=== PATIENT | female | born 1935 | race Caucasian/White ===

== ENCOUNTER 2019-08-31 09:49 | Inpatient (IN) ==
[2019-08-31] MEDS ORDERED: SALINE LOCK IV FLUID XX ONE (11:13)
[2019-08-31] MEDS ORDERED: DUONEB (A & A) INH SCH (11:15)
[2019-08-31] MEDS ORDERED: TYLENOL PO PRN (11:15)
[2019-08-31 11:51] LABS: BASO# 0.02 X1000 (0.0-0.2); BASO% 0.2 % (0.0-0.8); HEMATOCRIT 42.4 % (37.0-47.0); IMM GRAN# 0.02 X1000 (0.0-0.04); IMM GRAN% 0.2 % (0.0-0.5); LYMPH# 2.28 X1000 (1.2-3.4); LYMPH% 22.7 % (20.5-51.1); MCH 28.8 PG (27-31); MCV 87.2 FL (81-99); MONO# 1.25 X1000 (0.11-0.59); MONO% 12.4 % (1.7-9.3); MPV 9.4 FL (7.4-10.4); NEUT# 6.48 X1000 (1.4-6.5); NEUT% 64.5 % (42.2-75.2); PLT 235 X1000 (130-400); RBC 4.86 XMIL (4.2-5.4); RDW 14.2 % (11.5-14.5); WBC 10.05 X1000 (4.8-10.8)
[2019-08-31 12:06] LABS: AGAP 9; ALB/GLOB RATIO 1.1; ALKALINE PHOSPHATASE 56 U/L (32-104); BUN 9 mg/dL (8-22); CALCIUM 8.9 mg/dL (8.8-10.2); CHLORIDE 92 mmol/L (98-107); COSMO 261; CREATININE 0.7 mg/dL (0.5-0.9); ESTIMATED GFR > 60; GLUCOSE 97 mg/dL (70-104); GOT 23 U/L (10-30); GPT 11 U/L (10-36); SODIUM 131 mmol/L (136-145); TCO2 30 mmol/L (25-35); TOTAL BILIRUBIN 0.52 mg/dL (0.20-1.00); TOTAL PROTEIN 7.7 g/dL (6.3-8.3)
[2019-08-31] MEDS: SOLU-MEDROL IV SCH ×2 (12:39→18:27)
[2019-08-31] MEDS: ROCEPHIN 1 GM in NS 50 ML IV SCH (13:16)
[2019-08-31] MEDS: LEVAQUIN 750 MG/D5W 750 MG/150 ML IVPB IV SCH (13:17)
[2019-08-31 13:22] LABS: BE 5.4 mmoll (-3.0-3.0); BLOOD TYPE ARTERIAL; PCO2(98.6) 42 mmHg (35-45); PO2(98.6) 66 mmHg (60-100); SAMPLE BLOOD; THB 14.7 g/dL (11.5-17.4)
[2019-08-31 13:23] LABS: ALLEN TEST YES; METHB 1.3 % (0.0-1.5); MODALITY ROOM AIR; O2(CT) 19.2 mL/dL (15.0-23.0); O2HB 93.1 % (95.0-99.0); pH(98.6) 7.46 (7.35-7.45)
[2019-08-31 13:25] LABS: URINE SOURCE CLEAN CATCH
[2019-08-31 13:33] LABS: BILIRUBIN URINE NEGATIVE (NEGATIVE); BLOOD URINE TRACE (NEGATIVE); COLOR YELLOW; GLUCOSE URINE NEGATIVE (NEGATIVE); KETONE URINE NEGATIVE (NEGATIVE); LEUKOCYTES URINE NEGATIVE (NEGATIVE); NITRITE URINE NEGATIVE (NEGATIVE); PROTEIN URINE TRACE mg/dL (NEGATIVE); SP GRAVITY URINE 1.012; TURBIDITY URINE CLEAR (CLEAR); UROBILINOGEN URINE NORMAL (NORMAL)
[2019-08-31 13:34] LABS: UR EPITHELIAL CELLS <10 /HPF (<10); URINE BACTERIA NEGATIVE /HPF; URINE RBC <10 /HPF (<10); URINE WBC <10 /HPF (<10)
[2019-08-31] MEDS: DUONEB (A & A) INH SCH ×3 (16:19→23:39)
[2019-09-01] MEDS: ROCEPHIN 1 GM in NS 50 ML IV SCH ×3 (00:01→23:30)
[2019-09-01] MEDS: SOLU-MEDROL IV SCH ×5 (00:09→23:30)
[2019-09-01] MEDS ORDERED: SYSTANE EYE DROPS BOTH EYES PRN (06:19)
[2019-09-01 07:55] LABS: BASO# 0.01 X1000 (0.0-0.2); BASO% 0.1 % (0.0-0.8); HEMATOCRIT 43.9 % (37.0-47.0); HEMOGLOBIN 14.9 g/dL (12.0-16.0); LYMPH% 23.1 % (20.5-51.1); MCH 28.9 PG (27-31); MCHC 33.9 g/dL (33-37); MCV 85.2 FL (81-99); MONO# 0.19 X1000 (0.11-0.59); MONO% 2.3 % (1.7-9.3); MPV 10.4 FL (7.4-10.4); NEUT# 6.13 X1000 (1.4-6.5); NEUT% 74.5 % (42.2-75.2); PLT 239 X1000 (130-400); RBC 5.15 XMIL (4.2-5.4); WBC 8.23 X1000 (4.8-10.8)
--- NOTE | 2019-09-01 08:12 | Diag Imaging Result Doc PS360 ---
EXAM: CHEST-1 VIEW INDICATION: Pneumonia TECHNIQUE: One view COMPARISON: 07/11/2019 FINDINGS: The right upper lobe infiltrate seen on the previous study has worsened. The patient is slightly rotated toward the right, which may accentuated it. Right hilar prominence is stable. No discrete pleural fluid collection or pneumothorax is identified. The cardiac silhouette is unremarkable. IMPRESSION: Increase in density of the right upper lobe infiltrate as described. Electronically signed by Francis Roger 09/01/2019 8:10 AM
[2019-09-01] MEDS: DUONEB (A & A) INH SCH ×5 (08:20→23:52)
[2019-09-01 08:33] LABS: AGAP 14; BUN 9 mg/dL (8-22); CALCIUM 9.5 mg/dL (8.8-10.2); CHLORIDE 92 mmol/L (98-107); COSMO 268; CREATININE 0.5 mg/dL (0.5-0.9); ESTIMATED GFR > 60; GLUCOSE 159 mg/dL (70-104); POTASSIUM 3.3 mmol/L (3.5-5.1); SODIUM 133 mmol/L (136-145); TCO2 27 mmol/L (25-35)
--- NOTE | 2019-09-01 09:50 | PROVIDER PROGRESS NOTE ---
Progress Note Pulmonary additional note: Full consult to follow. If in bronchospasm becomes a recurrent issue, consider discontinuing nadolol.
--- NOTE | 2019-09-01 10:15 | PROGRESS NOTE ---
DATE: 09/01/2019 SUBJECTIVE: The patient says she feels a little bit better. She came in with bronchospasm and mild hypoxia. OBJECTIVE: Vital signs: Blood pressure is 159/83, respirations 20, pulse 61, temperature 97.9 degrees Fahrenheit HEENT: She is normocephalic. Lungs: Have scattered rales but no wheezing now. Heart: Regular rate and rhythm without murmurs, gallops, friction rubs. Abdomen: Soft. Active bowel sounds. No organomegaly or tenderness. Neurological: Intact grossly except for dementia. LABORATORY DATA: [place] [address] [place] 8230, hemoglobin 14.9. Initial blood gas had a pH 7.46, pCO2 242, PO2 a little low at 66 on room air. She is now on some oxygen. Initial potassium was 3, this morning was 3.3. Sodium was a little low also at 131 initially, and now 133. We will give her some p.o. potassium and we will watch this. ASSESSMENT: 1. Hypoxic respiratory distress. 2. Bronchospasm. 3. Right upper lobe pneumonia. 4. Hypokalemia secondary. 5. Secondary diagnosis of hypertension and dementia. PLAN: We will continue treatment. Replace potassium. We will change her from a clear liquid diet to a regular diet now. Continue IV antibiotics, IV steroids and breathing treatments. cc: River Tejeda Jr, MD
[2019-09-01] MEDS: ARICEPT PO SCH (10:53)
[2019-09-01] MEDS: LEXAPRO PO SCH (10:53)
[2019-09-01] MEDS: PRILOSEC PO SCH ×2 (10:53→21:47)
[2019-09-01] MEDS: NAMENDA PO SCH ×2 (10:54→21:47)
[2019-09-01] MEDS: AYR NASAL SPRAY NAS SCH (10:54)
[2019-09-01] MEDS: FLONASE NAS SCH (10:54)
[2019-09-01] MEDS: CORGARD PO SCH ×2 (10:54→21:47)
[2019-09-01] MEDS: KLOR-CON PO SCH (10:55)
[2019-09-01] MEDS: LEVAQUIN 750 MG/D5W 750 MG/150 ML IVPB IV SCH (12:34)
[2019-09-01] MEDS: MIRALAX PO SCH (18:55)
[2019-09-01] MEDS: CRESTOR PO SCH (21:48)
--- NOTE | 2019-09-01 21:52 | CONSULTATION ---
DATE OF CONSULTATION: 09/01/2019 CHIEF COMPLAINT: Shortness of breath. HISTORY OF PRESENT ILLNESS: This is an 84-year-old female who came in with bronchospasm and mild hypoxia. Recent chest x-ray revealed increased density of the right upper lobe infiltrate since last study. ALLERGIES: Codeine, penicillin, cefprozil. REVIEW OF SYSTEMS: A 10-point review of systems was obtained and pertinent is listed within the HPI, otherwise noncontributory. PAST MEDICAL HISTORY: Hypertension, dementia, hyperlipidemia. PAST SURGICAL HISTORY: Noncontributory. PHYSICAL EXAMINATION: Vital Signs: Temperature 98.8, pulse 104, respirations 20, blood pressure 187/105, O2 saturation 100% on room air. General: This is an 84-year-old female with daughter at bedside in no acute distress at present time. HEENT: Head is atraumatic, normocephalic. Pupils equal. Neck: Supple. Trachea midline. Respiratory: Wheezing noted bilaterally throughout lung luther. Nonlabored breathing. Symmetrical excursion. Cardiovascular: Regular rate and rhythm without murmurs, gallops or friction rubs. Abdomen: Soft, active bowel sounds in all 4 quadrants. Neurologic: Intact except for dementia. DIAGNOSTIC STUDIES: Mentioned in HPI. LABORATORY DATA: White blood cells 8.23. Red blood cells 5.15. Hemoglobin 14.9. Hematocrit 43.9. Sodium 133. Potassium 3.3. Chloride 92. Carbon dioxide 27. BUN 9. Calcium 9.5. ASSESSMENT AND PLAN: 1. Pneumonia, right upper lobe. Continue antibiotics, bronchodilators and steroids as prescribed. 2. Hypoxic respiratory distress. Continue supplemental O2 as needed. 3. Bronchospasm. If this becomes a recurrent issue, we will consider discontinuing nadolol. 4. Hypertension. We will monitor. 5. Dementia, aware. She is on Aricept and Namenda. TIME: Spent 31 minutes with this patient. Thank you for the courtesy of this consult. Dictated by CHIN Bruce for Lucero Apple MD cc: CHIN Bruce MD Roger H. Moss Jr, MD
[2019-09-02] MEDS: DUONEB (A & A) INH SCH ×7 (03:52→23:33)
[2019-09-02] MEDS: SOLU-MEDROL IV SCH ×3 (06:27→18:48)
[2019-09-02 06:38] LABS: BASO# 0.02 X1000 (0.0-0.2); BASO% 0.1 % (0.0-0.8); EOS# 0.01 X1000 (0.0-0.7); EOS% 0.1 % (0.0-10.0); HEMATOCRIT 43.8 % (37.0-47.0); HEMOGLOBIN 14.8 g/dL (12.0-16.0); IMM GRAN# 0.05 X1000 (0.0-0.04); IMM GRAN% 0.3 % (0.0-0.5); LYMPH# 2.01 X1000 (1.2-3.4); LYMPH% 12.8 % (20.5-51.1); MCH 28.9 PG (27-31); MCHC 33.8 g/dL (33-37); MCV 85.5 FL (81-99); MONO# 0.62 X1000 (0.11-0.59); MONO% 3.9 % (1.7-9.3); MPV 9.5 FL (7.4-10.4); NEUT# 13.02 X1000 (1.4-6.5); NEUT% 82.8 % (42.2-75.2); PLT 250 X1000 (130-400); RBC 5.12 XMIL (4.2-5.4); RDW 14.2 % (11.5-14.5); WBC 15.73 X1000 (4.8-10.8)
[2019-09-02 06:52] LABS: AGAP 11; BUN 12 mg/dL (8-22); CALCIUM 9.1 mg/dL (8.8-10.2); CHLORIDE 99 mmol/L (98-107); COSMO 277; CREATININE 0.6 mg/dL (0.5-0.9); ESTIMATED GFR > 60; GLUCOSE 164 mg/dL (70-104); POTASSIUM 3.3 mmol/L (3.5-5.1); SODIUM 137 mmol/L (136-145); TCO2 27 mmol/L (25-35)
--- NOTE | 2019-09-02 10:07 | PROGRESS NOTE ---
DATE: 09/02/2019 SUBJECTIVE: The patient says she is feeling better. She is not wheezing. OBJECTIVE: Blood pressure is 173/77, respirations 18, pulse 62, temperature 97.7 degrees Fahrenheit. HEENT: She is normocephalic. EOMs intact. PERRLA. Throat clear. Lungs: Have a few scattered rales but no wheezes at this time. Heart: Regular rate and rhythm without murmurs, gallops, or friction rubs. Abdomen: Soft. Active bowel sounds. No organomegaly or tenderness. Neurological: Examination intact grossly. Her sputum culture grew out E. coli that was not sensitive to Levaquin but is sensitive to cephalosporins. She is clinically getting better. Her white count went up to 15,000, which may be from her steroids. It shows, on her chart at the office, that she is allergic to penicillin but not cephalosporins. However, in the hospital chart, it showed that she is allergic to penicillin, codeine, and Cefzil. However, we found that when she took the Cefzil, she did not have an allergic reaction. She just threw it up almost immediately and could not take it. I think we can continue with the Rocephin and stop the Levaquin. She has taken Bactrim in the past and bacterium is sensitive to that and we may discharge her home on Bactrim. Right now, she seems to be doing well with the Rocephin. We will stop the Levaquin. She is on a beta-gato which can make wheezing worse, but she seems to be under control with this and when I first saw her in the office, she was not wheezing and that is I continued the nadolol. We will continue it at this time but if her wheezing comes back, we might consider changing it to a calcium channel gato. Blood pressure is more elevated but that may be because she has had pneumonia and because of the steroids. Since she is having no wheezing now, I am going to decrease her steroids a little and stop the Levaquin. We will get a chest x-ray tomorrow. ASSESSMENT: 1. Right upper lobe pneumonia. 2. Bronchospasm. 3. Hypertension. PLAN: We will get a chest x-ray, stop Levaquin, continue Rocephin. cc: River Tejeda Jr, MD
[2019-09-02] MEDS ORDERED: VANCOMYCIN IV PER PHARMACY MISC SCH (10:15)
[2019-09-02] MEDS: NAMENDA PO SCH ×2 (10:58→22:21)
[2019-09-02] MEDS: ARICEPT PO SCH (10:59)
[2019-09-02] MEDS: CORGARD PO SCH ×2 (10:59→22:21)
[2019-09-02] MEDS: PRILOSEC PO SCH ×2 (10:59→22:21)
[2019-09-02] MEDS: KLOR-CON PO SCH (11:00)
[2019-09-02] MEDS: FLONASE NAS SCH (11:00)
[2019-09-02] MEDS: LEXAPRO PO SCH (11:00)
[2019-09-02] MEDS ORDERED: VANCOMYCIN 1,500 MG in NS 250 ML IV ONE (11:00)
[2019-09-02] MEDS: AYR NASAL SPRAY NAS SCH (11:00)
--- NOTE | 2019-09-02 15:10 | Diag Imaging Result Doc PS360 ---
EXAM: CT THORAX W/O CONTRAST INDICATION: SOB TECHNIQUE: This exam was performed using automated exposure control, adjustment of mA or kV according to patient size, and/or use of iterative reconstruction technique. COMPARISON: 08/28/2018 FINDINGS: There is extensive patchy airspace consolidation involving the right upper lobe with bronchial mucosal thickening as well as tree-in-bud opacities indicating bronchitis and bronchiolitis. There is also mild bronchiectasis in the right upper lobe and there is atelectasis at the anterior segment of the right upper lobe. There is much milder patchy slightly nodular infiltrate at the superior aspect of the right lower lobe as well as a couple of mild nodular groundglass opacities in the left lower lobe. This was seen on the previous study 12 maxillary degree in the right upper lobe. It has worsened significantly. Consider an atypical pneumonia such as MICA. There is no pleural fluid collection and no pneumothorax. There are calcified mediastinal and hilar lymph nodes indicating prior granulomatous disease. No new lymphadenopathy is appreciated. There is no significant cardiomegaly. Limited views of the upper abdomen reveal a couple of hepatic cysts that are stable. IMPRESSION: 1.Extensive patchy consolidation with tree-in-bud opacities, mild bronchiectasis, and atelectasis associated with the right upper lobe. Consider an atypical pneumonia such as MICA. 2.Much milder consolidation at the superior aspect of the right lower lobe and a few groundglass nodular foci in the left lower lobe. Electronically signed by Francis Roger 09/02/2019 3:08 PM
[2019-09-02] MEDS: ROCEPHIN 1 GM in NS 50 ML IV SCH (16:09)
--- NOTE | 2019-09-02 19:12 | PROVIDER PROGRESS NOTE ---
Progress Note Dr. Apple Progress Note/Pulmonary and or critical care Subjective: The patient is lying in bed with no acute distress noted. Patients daughter at the bedside. Objective: Vital Signs: T-98.1, P-58, RR-16, B/P-186/79, O2 100% O2 @2 L/NC PHYSICAL EXAMINATION: General: This is an 84-year-old female with daughter at bedside in no acute distress at present time. HEENT: Head is atraumatic,normocephalic. Pupils equal. Neck: Supple. Trachea midline. Respiratory: Wheezing noted bilaterally throughout lung luther. Nonlabored breathing. Symmetrical excursion. Cardiovascular: Regular rate and rhythm without murmurs, gallops or friction rubs. Abdomen: Soft, active bowel sounds in all 4 quadrants. Neurologic: Intact except for dementia. Dr. Apple did assessment and managemant. CHIN Bruce did scribing only. LABS/Radiology Laboratory Results 09/02/19 09/02/19 05:59 05:59 WBC 15.73 H RBC 5.12 Hgb 14.8 Hct 43.8 MCV 85.5 MCH 28.9 MCHC 33.8 RDW Std Deviation 14.2 Plt Count 250 MPV 9.5 Immature Gran % (Auto) 0.3 Neut % (Auto) 82.8 H Lymph % (Auto) 12.8 L [place] % (Auto) 3.9 Eos % (Auto) 0.1 Baso % (Auto) 0.1 Immature Gran # (Auto) 0.05 H Neut # (Auto) 13.02 H Lymph # (Auto) 2.01 [place] # (Auto) 0.62 H Eos # (Auto) 0.01 Baso # (Auto) 0.02 Sodium 137 Potassium 3.3 L Chloride 99 Carbon Dioxide 27 Anion Gap 11 BUN 12 Creatinine 0.6 Estimated GFR/1.73 m2 > 60 BUN/Creatinine Ratio 20 Glucose 164 H Calculated Osmolality 277 Calcium 9.1 ASSESSMENT AND PLAN: 1. Pneumonia, right upper lobe. Continue antibiotics, bronchodilators and steroids as prescribed. 2. Hypoxic respiratory distress. Continue supplemental O2 as needed. 3. Bronchospasm. If this becomes a recurrent issue, we will consider discontinuing nadolol. 4. Hypertension. We will monitor. 5. Dementia, aware. She is on Aricept and Namenda.
[2019-09-02] MEDS: CRESTOR PO SCH (22:21)
[2019-09-03] MEDS: SOLU-MEDROL IV SCH ×5 (00:20→23:19)
[2019-09-03] MEDS: DUONEB (A & A) INH SCH ×6 (03:15→23:42)
[2019-09-03] MEDS: ROCEPHIN 1 GM in NS 50 ML IV SCH ×2 (05:26→17:17)
--- NOTE | 2019-09-03 06:44 | Diag Imaging Result Doc PS360 ---
CHEST-PORTABLE - 09/03/2019 INDICATION: pneumonia COMPARISON: 09/01/2019 FINDINGS: There has been decrease in the density of the infiltrate or opacification at the right lung apex. The left lung remains grossly clear. Heart size is top normal. No pleural effusions. IMPRESSION: Decrease in the density of the infiltrate at the right lung apex. Electronically signed by Terrence Ford 09/03/2019 6:42 AM
[2019-09-03 07:43] LABS: BASO# 0.01 X1000 (0.0-0.2); BASO% 0.1 % (0.0-0.8); HEMATOCRIT 44.4 % (37.0-47.0); HEMOGLOBIN 14.9 g/dL (12.0-16.0); IMM GRAN# 0.04 X1000 (0.0-0.04); IMM GRAN% 0.2 % (0.0-0.5); LYMPH# 1.68 X1000 (1.2-3.4); LYMPH% 9.9 % (20.5-51.1); MCH 29.2 PG (27-31); MCHC 33.6 g/dL (33-37); MCV 87.1 FL (81-99); MONO# 0.53 X1000 (0.11-0.59); MONO% 3.1 % (1.7-9.3); NEUT# 14.78 X1000 (1.4-6.5); NEUT% 86.7 % (42.2-75.2); PLT 273 X1000 (130-400); RDW 14.7 % (11.5-14.5); WBC 17.04 X1000 (4.8-10.8)
[2019-09-03 07:48] LABS: AGAP 10; BUN 14 mg/dL (8-22); CALCIUM 8.6 mg/dL (8.8-10.2); CHLORIDE 99 mmol/L (98-107); COSMO 277; CREATININE 0.6 mg/dL (0.5-0.9); ESTIMATED GFR > 60; GLUCOSE 151 mg/dL (70-104); POTASSIUM 3.7 mmol/L (3.5-5.1); SODIUM 137 mmol/L (136-145); TCO2 28 mmol/L (25-35)
[2019-09-03 08:30] LABS: BANDS 1 % (0-1); LYMPHS 8 % (21-51); MONO 1 % (1-9); SEGS 90 % (42-75)
--- NOTE | 2019-09-03 08:42 | PROGRESS NOTE ---
DATE: 09/03/2019 SUBJECTIVE: The patient says she is feeling better. OBJECTIVE: Vital Signs: Temperature 97.5 degrees Fahrenheit, pulse 53, respirations 16, blood pressure a little up at 188/78. This may be from her steroids. HEENT: She is normocephalic. PERRLA. Throat clear. Lungs: Have a few rales in the right upper lobe. Heart: Regular rate and rhythm without murmurs, gallops, friction rubs. Abdomen: Soft. Active bowel sounds. No megaly or tenderness. LABS: White count has gone up to 17,040, and this may be from her steroids. Hemoglobin 14.1. Electrolytes essentially normal. Blood sugar 151. X-RAYS: Chest x-ray shows improvement of the right upper lobe infiltrate. She has 1 positive blood culture from the left arm that is a gram-positive cocci. Final report is not back yet. She is now in isolation. FINAL DIAGNOSES: 1. Right upper lobe pneumonia. 2. Positive blood culture. PLAN: We will continue IV antibiotics. Decrease steroids. Await blood culture results. cc: River Tejeda Jr, MD
[2019-09-03] MEDS: CORGARD PO SCH ×2 (10:39→21:40)
[2019-09-03] MEDS: KLOR-CON PO SCH (10:39)
[2019-09-03] MEDS: LEXAPRO PO SCH (10:39)
[2019-09-03] MEDS: PRILOSEC PO SCH ×2 (10:39→21:41)
[2019-09-03] MEDS: NAMENDA PO SCH ×2 (10:39→21:41)
[2019-09-03] MEDS: ARICEPT PO SCH (10:40)
[2019-09-03] MEDS: FLONASE NAS SCH (10:40)
[2019-09-03] MEDS: AYR NASAL SPRAY NAS SCH (10:44)
[2019-09-03] MEDS: MIRALAX PO SCH (12:25)
--- NOTE | 2019-09-03 14:03 | Diag Imaging Result Doc PS360 ---
EXAM: BA SWALLOW W/VIDEO SPEECH THER 09/03/2019 HISTORY: aspiration possible TECHNIQUE: 116 images, 53 mGy, 22 seconds fluoroscopy time. COMMENT: There is no evidence of aspiration. There is inconsistent premature contraction of the cricopharyngeus. This is primarily seen within liquids. IMPRESSION: Minimal cricopharyngeal achalasia. Electronically signed by Luis Bui 09/03/2019 2:01 PM
--- NOTE | 2019-09-03 17:56 | PROVIDER PROGRESS NOTE ---
Progress Note Dr. Apple Progress Note/Pulmonary and or critical care Subjective: The patient is sitting at the edge of the bed with no acute distress noted. She just walks back from the bathroom with no significant SOB noted. She is on room air. She states she is feeling a lot better. She has occasional cough with pleurisy at times. Patients daughter is at the bedside. Objective: Vital Signs: T 97.4, BP 183/75, HI 57, RR 16, and SaO2 100% on NC 2L. Physical Examination: General: Sitting at the edge of the bed. No acute distress noted. HEENT: Normocephalic. Trachea midline. Pupils equal round reactive to light. Mucosa pink and moist. Oropharynx clear. Chest: Even and unlabored. Symmetrical excursion. Clear to auscultation bilaterally. CVS: S1 and S2 appreciated. Abdomen: Soft. Nontender. Obese. Normoactive bowel sounds noted. Extremities: No edema. No cyanosis. No clubbing. Neuro: A/O x3. Speech fluent. Follow commands. Labs and Radiology: Laboratory Results 09/03/19 09/03/19 07:00 07:00 WBC 17.04 H RBC 5.10 Hgb 14.9 Hct 44.4 MCV 87.1 MCH 29.2 MCHC 33.6 RDW Std Deviation 14.7 H Plt Count 273 MPV 10.0 Immature Gran % (Auto) 0.2 Neut % (Auto) 86.7 H Lymph % (Auto) 9.[address] [place] % (Auto) 3.1 Eos % (Auto) 0.0 Baso % (Auto) 0.1 Immature Gran # (Auto) 0.04 Neut # (Auto) 14.78 H Lymph # (Auto) 1.68 [place] # (Auto) 0.53 Eos # (Auto) 0.00 Baso # (Auto) 0.01 Segmented Neutrophils 90 H Band Neutrophils 1 Lymphocytes 8 L Monocytes 1 Sodium 137 Potassium 3.7 Chloride 99 Carbon Dioxide 28 Anion Gap 10 BUN 14 Creatinine 0.6 Estimated GFR/1.73 m2 > 60 BUN/Creatinine Ratio 23 Glucose 151 H Calculated Osmolality 277 Calcium 8.6 L Assessment: Mild hypoxia. Resolved. Patient tolerates room air at this time. Bronchospasm. Resolved. RUL atypical pneumonia with mild bronchiectasis and atelectasis. Sputum culture from 3/13/20 grew E. Coli which is resistant to Levofloxacin. CXR today shows decrease in the density of the infiltrate at the right lung apex. Dementia. Worsening leukocytosis. No fever. Likely secondary to Solu-Medrol. Plan: Continue antibiotics including Levaquin and Vancomycin. Continue Solu-Medrol and bronchodilators. Solu-Medrol has been weaned down from 80 mg q6h to 40mg q6h. GI and DVT prophylaxis. We check Acid-fast Bacilus (AFB) in sputum for Mycobactrium Avium-Intracellulare Infection (MICA). We ordered modified barium study today. We start incentive spirometer. We encourage patient to use it routinely with deep breathing and coughing.
[2019-09-03] MEDS: CRESTOR PO SCH (21:40)
[2019-09-03] MEDS ORDERED: VANCOMYCIN 1,200 MG in NS 250 ML IV SCH (23:00)
[2019-09-04] MEDS: DUONEB (A & A) INH SCH ×2 (04:33→07:57)
[2019-09-04] MEDS: SOLU-MEDROL IV SCH (05:06)
[2019-09-04] MEDS: ROCEPHIN 1 GM in NS 50 ML IV SCH (05:06)
[2019-09-04 07:48] VITALS: BP 180/79
--- NOTE | 2019-09-04 08:29 | DISCHARGE SUMMARY ---
ADMISSION DATE: 08/31/2019 DISCHARGE DATE: 09/04/2019 FINAL DIAGNOSES: 1. Right upper lobe pneumonia. 2. Bronchospasm. SECONDARY DIAGNOSIS: Dementia. PRESENT ILLNESS: The patient is an 84-year-old, white female that I saw in the office. She has had an atelectatic right upper lung for some time but has gotten pneumonia there a couple of times. Came to the office and I treated her with Levaquin initially as she had only a mild wheeze. Within a day or two at home, she started wheezing more and was brought to the emergency room with hypoxia and a PO2 of 66, a pCO2 of 42, pH 7.46, plus wheezing heavily at that time. She was started on IV steroids and IV antibiotics. We did a sputum culture that ended up growing out E. coli that was not sensitive to Levaquin. It is sensitive to Bactrim and to cephalosporins. She was initially placed on Rocephin with Levaquin in the hospital. Levaquin stopped. Continued Rocephin. Chest x-ray has improved. Her bronchospasm had ceased. I have decreased her IV Solu- Medrol and she is still not wheezing. She has inhalers at home, which she can use. Blood pressure was up a little bit at 180/79. Earlier, it was 149/69. Respirations 18, pulse 56, temperature 97.7 degrees Fahrenheit. The patient initially had a normal white count and then it went up after the IV steroids. I believe they were the cause of this. She had one blood culture that was positive. It was micrococcus and considered a contaminant. She feels much better at this time. I think she can make it at home. PHYSICAL EXAMINATION: HEENT: She is normocephalic. EOMs intact. PERRLA. Throat clear. Lungs: Clear to auscultation and percussion without rhonchi, rales, or wheezes. Heart: Regular rate and rhythm without murmurs, gallops, or friction rubs. Abdomen: Soft. Active bowel sounds. No organomegaly or tenderness. Neurological: Examination intact grossly except for her dementia. PLAN: We will discharge her home with her home inhalers, which I believe are Symbicort and albuterol. We will place her on prednisone 40 mg tapering over [address] her on Bactrim DS 1 p.o. b.i.d. for 14 days. We will see her back in the office in next 2 to 3 days with a chest x- ray and a CBC. If she has any problems at home, she is to let me know. cc: River Tejeda Jr, MD
[2019-09-04] MEDS: KLOR-CON PO SCH (08:55)
[2019-09-04] MEDS: NAMENDA PO SCH (08:55)
[2019-09-04] MEDS: ARICEPT PO SCH (08:55)
[2019-09-04] MEDS: LEXAPRO PO SCH (08:55)
[2019-09-04] MEDS: PRILOSEC PO SCH (08:56)
[2019-09-04] MEDS: AYR NASAL SPRAY NAS SCH (08:56)
[2019-09-04] MEDS: FLONASE NAS SCH (08:56)
[2019-09-04] MEDS: CORGARD PO SCH (08:56)
== END 2019-09-04 09:39 | disposition home or self-care (01) | DRG 191 ==
LOC: DIRADM → OBSVTOIN 09:49 → EDIPHOLD 10:43 → 4N 14:10
PROVIDERS: ADMIT Emergency Medicine; ATTEND Emergency Medicine